=== PATIENT | male | born 1965 | race Hispanic/Latino ===

== ENCOUNTER 2021-07-20 11:10 | Outpatient (CLI) | payer OTHER ==
--- NOTE | 2021-07-20 12:48 | XRay Report ---
LEFT SHOULDER 3 VIEWS INDICATION / CLINICAL INFORMATION: LEFT SHOULDER PAIN. COMPARISON: None available. FINDINGS: BONES / JOINT(S): The joint spaces are well-maintained. No significant arthritis. There is no evidenc e of fracture, subluxation or destructive lesion. SOFT TISSUES: No significant abnormality. ADDITIONAL FINDINGS: The visualized left lung is clear. IMPRESSION: No acute abnormality. Signer Name: Telly Hernández MD Signed: 07/20/2021 12:44 PM Workstation Name: [id number]
--- NOTE | 2021-07-20 12:50 | XRay Report ---
LUMBOSACRAL SPINE 3 VIEWS INDICATION / CLINICAL INFORMATION: BACK PAIN. COMPARISON: None available. FINDINGS: BONES / JOINT(S): There is moderate anterior spurring throughout the thoracolumbar spine without sign ificant disc space narrowing. There are mild hypertrophic changes involving the facet joints in the l ower lumbar spine bilaterally. The pedicles are intact and the SI joints are normal. There is no evid ence of acute fracture, subluxation or destructive lesion. SOFT TISSUES: There are moderate atherosclerotic calcifications involving the abdominal aorta and its branches without aneurysm. ADDITIONAL FINDINGS: None. IMPRESSION: Spondylosis and atherosclerosis without acute abnormality. Signer Name: Telly Hernández MD Signed: 07/20/2021 12:46 PM Workstation Name: [id number]
--- NOTE | 2021-07-20 12:52 | XRay Report ---
BILATERAL KNEES 6 VIEWS INDICATION / CLINICAL INFORMATION: BILATERAL KNEE PAIN. COMPARISON: None available. FINDINGS: BONES / JOINT(S): There are zoev-[id number]-gdnslzog tricompartmental degenerative changes involving the righ t knee. There are minimal degenerative changes involving the left knee. There is no evidence of acute fracture, subluxation, destructive lesion or joint effusion. SOFT TISSUES: There are mild to moderate atherosclerotic calcifications bilaterally. ADDITIONAL FINDINGS: None. IMPRESSION: Osteoarthritis predominantly involving the right knee without acute abnormality. Signer Name: Telly Hernández MD Signed: 07/20/2021 12:48 PM Workstation Name: [id number]
== END 2021-07-20 11:11 | disposition home or self-care (01) ==
LOC: XRAY 11:10
PROVIDERS: ATTEND Internal Medicine
DX: M17.0 Bilateral primary osteoarthritis of knee (principal); I70.0 Atherosclerosis of aorta; M47.817 Spondylosis without myelopathy or radiculopathy, lumbosacral region; M25.512 Pain in left shoulder
CPT/HCPCS: 72100